=== PATIENT | female | born 1965 | race Caucasian/White ===

== ENCOUNTER 2019-04-07 08:46 | Emergency (ER) | payer OTHER ==
[~2019-04-07] VITALS: Ht 170.2 cm; Wt 73.3 kg
[~2019-04-07 08:46] MED LIST: ALBU8.5H5 INH; HYDR-4011 PO; HYDR-762 PO; HYDR480S10 PO; IBUP800T48 PO; LISI10TA PO; MED4DP PO; NAPR-985 PO; OMEP20CA16 PO
[2019-04-07 08:55] VITALS: BP 127/77; PULSE 88; RESP 20; Ht 170.2 cm; Wt 73.3 kg
[2019-04-07] MEDS ORDERED: DEXAMETHASONE 10 MG/ML 1 ML INJ IM ONE (09:30)
[2019-04-07] MEDS ORDERED: SOD CHLORIDE 0.9% 1,000 ML IV STA (10:04)
== END 2019-04-07 11:31 | disposition home or self-care (01) ==
LOC: FTE 08:46
DX: R20.2 Paresthesia of skin (principal); I10 Essential (primary) hypertension; Z87.891 Personal history of nicotine dependence
CPT/HCPCS: 80053; 85025; 96372; J1100; J7030; Z7502